=== PATIENT | male | born 1985 | race Caucasian/White ===

== ENCOUNTER 2021-08-25 02:53 | Emergency (ER) | payer OTHER, SELFPAY ==
--- NOTE | ~2021-08-25 | CT_ITS ---
EXAMINATION: CT abdomen pelvis w con DATE: 08/25/2021 03:54 INDICATION: Abdominal pain TECHNIQUE: Computed tomography (CT) of the abdomen and pelvis was performed with 100 cc Omnipaque 350 intravenous contrast. Automated exposure control and iterative reconstruction technique were employe d. Exam dose: 815.82 mGy-cm total exam DLP. COMPARISON: None. FINDINGS: There is minimal dependent right lower lobe atelectasis. Normal heart size. No pericardial or pleural effusion. The liver, gallbladder, bile ducts, spleen, pancreas, pancreatic duct and adrenal glands appear soraida l. Normal caliber of the abdominal aorta. No intraperitoneal or retroperitoneal or pelvic mass lesion or adenopathy or ascites. No renal mass lesion. No urinary tract calculus or hydroureteronephrosis. Normal caliber of the abdominal aorta. No intraperitoneal or retroperitoneal or pelvic mass lesion or adenopathy or ascites. Normal appendix. Minimal colonic diverticulosis; no CT evidence of diverticulitis. Normal appendix. N o bowel obstruction, bowel wall thickening, pneumatosis or intraperitoneal free air. No suspicious osteolytic or osteoblastic lesions are noted. IMPRESSION: Normal appendix Minimal diverticulosis of the colon; no CT evidence of diverticulitis Reviewed, dictated and finalized at [facility] Reviewed, dictated and finalized at [facility].
[2021-08-25 02:57] VITALS: BP 125/96; PULSE 67; RESP 18; TEMP 36.6; O2SAT 100
--- NOTE | 2021-08-25 03:20 | ED.GENADULT ---
HPI - General Adult General Chief complaint: Abdominal Pain Stated complaint: Unable to sleep, right arm pain and back pain Time Seen by Provider: 08/25/21 02:59 Source: RN notes reviewed History of Present Illness HPI narrative: Patient presents emergency department from home for abdominal pain. Patient states abdominal pain began this evening pain is located in the upper abdomen and radiates up in between his shoulder blades described as burning in nature states he tried taking Pepto-Bismol and Tums at home with no relief he denies any fevers or chills chest pain shortness of breath nausea vomiting diarrhea or any other symptoms Related Data Allergies Allergy/AdvReac Type Severity Reaction Status Date / Time codeine AdvReac Unknown SEVERE Verified 08/17/19 12:11 HICCUPS Review of Systems Review of Systems: Gen.: Denies fevers or chills ENT: Denies congestion Respiratory: Denies shortness of breath or cough CV: Denies chest pain or palpitations GI: See HPI denies burning, urgency, frequency or hematuria Musculoskeletal: Denies back pain or muscle pain Neuro: Denies numbness, tingling, weakness or focal weakness Skin: Denies rash Except as documented, all other systems reviewed and negative PMFSH Past Medical History Medical History (Updated 08/25/21 @ 06:26 by Peng Pulido DO) Patient denies significant medical history Surgical History Surgical History (Updated 10/14/19 @ 17:45 by Paris Avila PA-C) H/O nasal septoplasty Social History Social History Smoking status: Current every day smoker Gender identity (if verbalized by the patient): Male Exam Narrative: APPEARANCE: No acute distress, nontoxic, resting in bed HEENT: Normocephalic, atraumatic, OMM RESPIRATORY: No respiratory distress, clear to auscultation bilaterally with no rhonchi wheezing or rales CARDIOVASCULAR: RRR s murmur ABDOMINAL: Soft nondistended tender to palpation in epigastric and right upper quadrant and left lower quadrant no tenderness to palpation in right lower quadrant and left lower quadrant no rebound or guarding MUSCULOSKELETAl: Moves all extremities. No clubbing, cyanosis or edema. NEURO: Awake and alert. Following commands, speech normal, no focal deficits SKIN:: Warm, dry. Normal Color PSYCHIATRIC: Normal affect/mood Course Course Emergency Course: Patient states that they are feeling much better at this time. States abdominal pain has improved. Repeat abdominal exam shows the patient's abdomen to be soft with no surgical abdomen present discussed with patient results of workup and diagnosis. Discussed need for follow-up with primary care physician, reasons to return to the emergency department in proper use of medication. Patient understands and agrees to current treatment plan Vital Signs Vital signs: Vital Signs Temperature 97.9 F 08/25/21 02:57 Pulse Rate 67 08/25/21 02:57 Respiratory Rate 18 08/25/21 02:57 Blood Pressure 125/96 H 08/25/21 02:57 Pulse Oximetry 100 08/25/21 02:57 Temperature 97.9 F 08/25/21 02:57 Pulse Rate 67 08/25/21 02:57 Respiratory Rate 18 08/25/21 02:57 Blood Pressure 125/96 H 08/25/21 02:57 Pulse Oximetry 100 08/25/21 02:57 Medical Decision Making MDM Narrative Medical decision making narrative: Patient's abdomen is soft without significant pain or signs of surgical abdomen on serial exams. Lab and x-ray evaluations are reviewed and patient is felt to be a reasonable candidate for outpatient management. Patient was instructed as to limitations of x-ray and laboratory evaluation and encouraged to return to ED or primary physician for repeat exam in 12 hours if continued or worsening pain Vital Signs Vital Signs: Vital Signs Temperature 97.9 F 08/25/21 02:57 Pulse Rate 67 08/25/21 02:57 Respiratory Rate 18 08/25/21 02:57 Blood Pressure 125/96 H 08/25/21 02:57 Pulse Oximetry 100
[2021-08-25 03:27] LABS: Basophils Percent Auto 0.5 % (0.2-1.2); Eosinophils Absolute Auto 0.1 K/mm3 (0-0.3); Eosinophils Percent Auto 1.7 % (0-4.4); Hematocrit 40.9 % (42.0-52.0); Hemoglobin 13.9 g/dL (14.0-18.0); Immature Granulocyte Absolute 0.01 K/mm3 (0.00-0.031); Immature Granulocyte Percent A 0.2 % (0-0.5); Mean Corpuscular Hemoglobin 30.5 pg (26-34); Mean Corpuscular Volume 89.9 fl (80-100); Monocytes Absolute Auto 0.5 K/mm3 (0.1-0.6); Monocytes Percent Auto 8.4 % (2.6-8.5); Neutrophils Absolute Auto 3.9 K/mm3 (1.3-6.7); Neutrophils Percent Auto 62.2 % (45.5-73.1); Platelet Count Result 184 k/mm3 (150-375); Red Blood Count 4.55 M/mm3 (4.6-6.20); Red Cell Distribution Width 12.7 % (11.5-14.5); White Blood Count 6.3 K/mm3 (4.5-10.0)
[2021-08-25] MEDS: SODIUM CHLORIDE 0.9% IV 1,000 ML 999 ML IV CONT (03:35)
[2021-08-25] MEDS: FAMOTIDINE 20 MG/2 ML VIAL IV PUSH (03:35)
[2021-08-25] MEDS: KETOROLAC 30 MG/ML VIAL (*BKC) IV PUSH (03:35)
[2021-08-25 03:36] LABS: Alanine Aminotransferase 35 U/L (4-50); Albumin Level 4.5 g/dL (3.5-5.1); Alkaline Phosphatase 60 U/L (38-126); Anion Gap 11 mmol/L (8-16); Aspartate Amino Transferase 30 U/L (17-59); Bilirubin,Total 0.3 mg/dL (0.2-1.3); Blood Urea Nitrogen 16 mg/dL (9-20); Calcium 9.6 mg/dL (8.4-10.2); Carbon Dioxide 21 mmol/L (22-30); Chloride 109 mmol/L (98-107); Estimated CRCL calculation 115 ml/min; Estimated Glomerular Filt Rate > 60; Glucose 108 mg/dL (65-110); Lipase 59 U/L (23-300); Potassium 3.6 mmol/L (3.4-5.0); Sodium 141 mmol/L (137-145)
--- NOTE | 2021-08-25 05:49 | ECG_ITS ---
Measurements Intervals [place] Rate: 44 P: 50 NE: 207 QRS: -10 QRSD: 100 T: -1 QT: 387 QTc: 333 Interpretive Statements SINUS BRADYCARDIA WITH SINUS ARRHYTHMIA BASELINE ARTIFACT- II, III, AVR, AVL, AVF ABNORMAL ECG Electronically Signed On 08-25-2021 6:38:59 CDT by Juan Carlos Stovall D.O.
== END 2021-08-25 07:02 | disposition home or self-care (01) ==
PROVIDERS: Emergency Provider Emergency Medicine; PCP Family Medicine
DX: R10.13 Epigastric pain (principal); F17.200 Nicotine dependence, unspecified, uncomplicated; R00.1 Bradycardia, unspecified; K57.90 Diverticulosis of intestine, part unspecified, without perforation or abscess without bleeding
CPT/HCPCS: 36415; 74177; 80053; 83690; 85025; 93005; 96361; 96374; 96375; 99284; A9270; J1885; J7030; Q9967

== ENCOUNTER → 2022-01-02 03:37 | Outpatient (CLI) | payer OTHER, SELFPAY ==
[2022-01-02 12:05] LABS: SARS-CoV-2 RNA PCR Negative
== END ==
PROVIDERS: PCP Family Medicine; Visit Provider Internal Medicine Gastroenterology
DX: Z01.812 Encounter for preprocedural laboratory examination (principal); Z20.822 Contact with and (suspected) exposure to COVID-19
CPT/HCPCS: C9803; U0003; U0005

== ENCOUNTER 2022-01-05 02:10 | Day surgery (SDC) | payer OTHER, SELFPAY ==
[2021-12-26 09:46] VITALS: BMI 31.7
[2022-01-05 07:37] VITALS: BP 137/82; PULSE 58; RESP 18; TEMP 36.3; O2SAT 100; BMI 32.0
[2022-01-05] MEDS: LACTATED RINGERS 1,000 ML 150 ML IV CONT (07:46)
--- NOTE | 2022-01-05 07:52 | P.PNAN_ITS ---
Anes - Initial Pre Proc Eval Procedure: Operation Date: 01/05/22 08:30 Proposed Procedures p Esophagogastroduodenoscopy - Randy Sloan MD Date/Time: 01/05/22 07:52 Surgeon: Randy Sloan MD Pre Op Diagnosis: epigastric pain Patient Data Age: 36 Gender: M Height: 1.75 m Weight: 98.3 kg Last Vital Signs Temp 36.3 C L 01/05/22 07:37 Pulse 58 L 01/05/22 07:37 Resp 18 01/05/22 07:37 BP 137/82 01/05/22 07:37 Pulse Ox 100 01/05/22 07:37 Allergies Allergy/AdvReac Type Severity Reaction Status Date / Time codeine AdvReac Intermediate SEVERE Verified 01/05/22 07:36 HICCUPS Home Medications Medication Instructions Recorded Confirmed Type No Home Medications 12/09/21 12/26/21 History Patient hx anesthesia problems: none Family hx anesthesia problems: none Results Review: All pre-operative results and documents have been reviewed as part of the pre-operative evaluation. [facility] Past Medical History Medical History Obesity Patient denies significant medical history Smoker Surgical History Surgical History H/O nasal septoplasty Social History Social History (Updated 12/26/21 @ 09:51 by Katie Rodriguez RN) Smoking packs per day: 1 Smoking cigarettes per day: 20.0 Years smoked: 15 Smoking pack-years: 15.00 Smoking status: Former smoker Tobacco type: e-cigarettes/vaping Additional smoking assessment comments: VAPES CURRENTLY CARTRIDGE EVERY 2 DAYS Alcohol intake: current Drinks per week: 12 Alcohol use details: BEERS Substance use: never Substance use type: does not use Living arrangements: with family Gender identity (if verbalized by the patient): Male Spiritual care concerns: No Anes - Eval Final PreProcedure Day of Procedure 01/05/22 07:52 Patient weight: obese Heart: regular rate and rhythm Lungs: clear to auscultation Airway: Mallampati scale class II Neurological: alert and oriented Last oral intake: >/= 8 hours ASA classification: II Emergent: no Anesthetic plan: proceed Anesthesia type and monitoring: general GIVS and standard monitoring Results Review: All pre-operative results and documents have been reviewed as part of the pre-operative evaluation. Informed Consent: The patient's anesthetic plan and its attendant risks and benefits were discussed with the patient/family/POA. Questions were solicited and answers provided to the satisfaction of the patient/family/POA.
--- NOTE | 2022-01-05 07:56 | WPDGICN ---
Assessment and Plan Assessment and plan (1) Epigastric abdominal pain: Code(s): R10.13 - Epigastric pain Status: Acute Assessment and Plan: Patient with epigastric pain prompting an ER visit. For this reason an EGD is requested kimbrough suggest he try antacid such as Mylanta, Tums, or xoul-och-yfogtec Pepcid on a routine basis should this occur. Further recommendations will be given after endoscopy. Anti-reflux measures bland diet her strongly encouraged. (2) Constipation: Code(s): K59.00 - Constipation, unspecified Status: Acute Assessment and Plan: Patient with constipation. Would recommend Metamucil be taken on a daily basis. MiraLax to supplement this on an mjxak-prehq-lnw basis may also be beneficial. High-fiber diet in general is encouraged. GI Consult Note Consult date/time: 01/05/22 07:56 HPI: Osmin Schwartz is a 36 year old male Presents for EGD. He has occasional epigastric pain. This prompted him to go to the emergency room on at least 1 occasion. He was given antacids with good improvement of symptoms. He has not tried any guoq-vwx-ktrtwba medications. He denies any dysphagia or weight loss. He has had no bleeding. Patient additionally complains of difficulty with bowel habits. He strains at stools has infrequent bowel movements. He repeat ports hemorrhoidal pain with flare ups at least once a month. He states he does eat fruits and vegetables but not has not taken any laxatives. He was going to try probiotics but does not implement this regularly. Family history is noncontributory. Review of Systems Review of Systems: All systems reviewed & are unremarkable except as noted in HPI and below PMFSH Past Medical History Medical History Obesity Patient denies significant medical history Smoker Surgical History Surgical History H/O nasal septoplasty Social History Social History (Updated 12/26/21 @ 09:51 by Katie Rodriguez RN) Smoking packs per day: 1 Smoking cigarettes per day: 20.0 Years smoked: 15 Smoking pack-years: 15.00 Smoking status: Former smoker Tobacco type: e-cigarettes/vaping Additional smoking assessment comments: VAPES CURRENTLY CARTRIDGE EVERY 2 DAYS Alcohol intake: current Drinks per week: 12 Alcohol use details: BEERS Substance use: never Substance use type: does not use Living arrangements: with family Gender identity (if verbalized by the patient): Male Spiritual care concerns: No Meds Home Medications and Allergies Home Medications Medication Instructions Recorded Confirmed Type No Home Medications 12/09/21 12/26/21 History Allergies Allergy/AdvReac Type Severity Reaction Status Date / Time codeine AdvReac Intermediate SEVERE Verified 01/05/22 07:36 HICCUPS Vital Signs Vital Signs - 24 hr 01/05/22 07:37 Temperature 97.3 F L Pulse Rate 58 L Respiratory Rate 18 Blood Pressure 137/82 Pulse Oximetry 100 Exam Narrative: Physical exam reveals patient be alert. Vital signs stable. HEENT exam is unremarkable. Patient is anicteric. Lungs are clear to auscultation and percussion. Heart is without murmur or extra sounds. Abdomen bowel sounds present soft nontender with no hepatosplenomegaly. Rectal exam without lesions. Skin reveals many tattoos.
[2022-01-05] MEDS: BENZOCAINE (*SP) 60 ML SPRAY CAN (HURRICAINE) 1 SPRAY MUCOUS MEM (08:32)
[2022-01-05 08:41] VITALS: BP 110/72; PULSE 56; RESP 18; O2SAT 100
[2022-01-05 08:51] VITALS: BP 116/71; PULSE 58; RESP 17; O2SAT 100
[2022-01-05 09:01] VITALS: BP 118/79; PULSE 61; RESP 20; O2SAT 100
== END 2022-01-05 09:05 | disposition home or self-care (01) ==
PROVIDERS: PCP Family Medicine; Visit Provider Internal Medicine Gastroenterology
PROC: 0DJ08ZZ Inspection of Upper Intestinal Tract, Via Natural or Artificial Opening Endoscopic (ICD-10-PCS; CPT 43235; principal; 2022-01-05 08:30)
DX: K21.00 Gastro-esophageal reflux disease with esophagitis, without bleeding (principal); K22.10 Ulcer of esophagus without bleeding; K59.00 Constipation, unspecified; F17.290 Nicotine dependence, other tobacco product, uncomplicated; E66.9 Obesity, unspecified; Z68.32 Body mass index [BMI] 32.0-32.9, adult
CPT/HCPCS: 43239; 88305; C9803; J2001; J2704; J7120; U0003; U0005

== ENCOUNTER 2022-04-28 00:29 | Inpatient (IN) | payer OTHER, SELFPAY ==
--- NOTE | ~2022-04-28 | MR_ITS ---
EXAMINATION: MR MRCP wo/w con/w 3D wo ind DATE: 04/28/2022 10:05 INDICATION: Choledocholithiasis. TECHNIQUE: Magnetic resonance imaging (MRI) of the abdomen was performed without intravenous contrast . Sequences included coronal T2-weighted FS FSE, coronal T2-weighted FSE, axial T1-weighted LAVA, cor onal FS FIESTA, axial dual-echo T1-weighted SPGR, coronal lava-FLEX, sagittal T2-weighted FSE, axial T2-weighted FSE, and axial DWI. Thick-slab T2-weighted FSE images were obtained for magnetic resonanc e cholangiopancreatography (MRCP). Maximum intensity projection 3-D reconstructions of the volumetric data were created by the technologist. Postcontrast sequences included coronal LAVA-flex and time co urse of axial T1-weighted LAVA. COMPARISON: CT abdomen and pelvis 04/28/2022 FINDINGS: ABDOMEN MRI: The liver demonstrates periportal edema. There is a gallstone in the gallbladder, which is contracted. Gallbladder wall thickening is noted. The spleen, pancreas, adrenal glands, and kidney s are normal. There are no dilated loops of bowel. The appendix is normal. There are no pathologicall y enlarged lymph nodes. There is no free intraperitoneal fluid. ABDOMEN MRCP: The common duct is normal and measures 4 mm. No choledocholithiasis. IMPRESSION: 1. No choledocholithiasis. 2. Cholelithiasis. Gallbladder wall thickening is likely secondary to gallbladder contraction and int erstitial edema. Reviewed, dictated and finalized at location A. IMPRESSION: 1. No choledocholithiasis. 2. Cholelithiasis. Gallbladder wall thickening is likely secondary to gallbladd er contraction and interstitial edema.
--- NOTE | ~2022-04-28 | CT_ITS ---
EXAMINATION: CT abdomen pelvis wo con DATE: 04/28/2022 01:02 INDICATION: Upper abdominal pain. TECHNIQUE: Computed tomography (CT) of the abdomen and pelvis was performed without intravenous contr ast. Automated exposure control and iterative reconstruction technique were employed. The dose-length product was 721.47 mGy-cm. COMPARISON: CT abdomen and pelvis 08/25/2021 FINDINGS: The visualized portions of the lung bases are clear without pneumonia or pleural effusion. The heart size is normal. No pericardial effusion. There is a small sliding hiatal hernia. There is l iver is normal. There is a gallstone in the gallbladder, which is normal in size. The spleen, pancrea s, adrenal glands, and kidneys are normal. There is no urolithiasis. There is diverticulosis of the c olon without evidence of diverticulitis. The appendix is normal. There are no dilated loops of bowel. There are no pathologically enlarged lymph nodes. There is no free intraperitoneal fluid. There is o steonecrosis of the femoral heads. IMPRESSION: 1. Cholelithiasis. No specific evidence of acute cholecystitis. 2. Small sliding hiatal hernia. 3. Osteonecrosis of the femoral heads. Reviewed, dictated and finalized at location A.
[2022-04-28 00:30] VITALS: BP 144/92; PULSE 66; RESP 16; TEMP 36.4; O2SAT 100
--- NOTE | 2022-04-28 00:54 | ED.ABDPAIN ---
HPI - Abdominal Pain General Chief Complaint: Abdominal Pain <MICHELLE Manley Last Filed: 04/28/22 02:54> Stated Complaint: abdominal pain <MICHELLE Manley Last Filed: 04/28/22 02:54> Time Seen by Provider: 04/28/22 00:38 <MICHELLE Manley Last Filed: 04/28/22 02:54> History of Present Illness HPI narrative: Patient is a 36-year-old male here for evaluation of epigastric discomfort today and yesterday. Patient states the pain came on yesterday, was mild in nature, and relieved after heating pack and rest. He states the pain returned tonight, woke him up from sleep, became much more severe in nature. The pain radiates to his bilateral shoulders and is constant. He has not attempted any medications for his pain, but denies relief after heating pad tonight. Does note that he had 1 loose nonbloody stool today. Denies nausea, vomiting, fevers, chills, sick contacts, new foods, chest pain or shortness of breath. Does endorse frequent alcohol use and he is a smoker. Denies history of surgeries on abdomen. <MICHELLE Manley Last Filed: 04/28/22 02:54> Related Data Home Medications: Home Medications Medication Instructions Recorded Confirmed No Home Medications 12/09/21 12/26/21 <MICHELLE Manley Last Filed: 04/28/22 02:54> Allergies/Adverse Reactions: Allergies Allergy/AdvReac Type Severity Reaction Status Date / Time codeine AdvReac Intermediate SEVERE Verified 04/28/22 00:33 HICCUPS <MICHELLE Manley Last Filed: 04/28/22 02:54> Review of Systems Review of Systems: Gen: Denies fevers or chills Eyes: Denies eye pain or visual change ENT: Denies congestion Respiratory: Denies shortness of breath or cough CV: Denies chest pain or palpitations GI: Reports abdominal pain. Denies nausea, emesis or diarrhea denies burning, urgency, frequency or hematuria Musculoskeletal: Denies back pain or muscle pain Neuro: Denies numbness, tingling, weakness or focal weakness Skin: Denies rash Except as documented, all other systems reviewed and negative <Paris Mcclelland PA-C - Last Filed: 04/28/22 02:54> [facility] Past Medical History Medical History: Medical History Obesity Patient denies significant medical history Smoker <Paris Mcclelland PA-C - Last Filed: 04/28/22 02:54> Surgical History Surgical History: Surgical History H/O nasal septoplasty <Paris Mcclelland PA-C - Last Filed: 04/28/22 02:54> Social History Social History: Social History (Updated 12/26/21 @ 09:51 by Katie Rodriguez RN) Smoking packs per day: 1 Smoking cigarettes per day: 20.0 Years smoked: 15 Smoking pack-years: 15.00 Smoking status: Former smoker Tobacco type: cigarettes and e-cigarettes/vaping Additional smoking assessment comments: VAPES CURRENTLY CARTRIDGE EVERY 2 DAYS Alcohol intake: current Drinks per week: 12 Alcohol use details: BEERS Substance use: never Substance use type: does not use Gender identity (if verbalized by the patient): Male Spiritual care concerns: No <MICHELLE Manley Last Filed: 04/28/22 02:54> Exam Narrative: APPEARANCE: No acute distress, nontoxic, resting in bed EYES: EOMI HEENT: Normocephalic, atraumatic, OMM RESPIRATORY: No respiratory distress Clear to auscultation bilaterally with no rhonchi wheezing or rales. CARDIOVASCULAR: 2+ radial pulses bilaterally. Regular rate and rhythm without murmurs rubs or gallops. ABDOMINAL: Tender in epigastrium with guarding. Soft, nondistended, no rebound MUSCULOSKELETAL: Moves all extremities. No clubbing, cyanosis or edema. NEURO: Awake and alert. Following commands, speech normal, no focal deficits SKIN:: Warm, dry. No rashes lesions or abrasions PSYCHIATRIC: Normal affect/mood, <MICHELLE Manley
[2022-04-28 00:58] LABS: Basophils Percent Auto 0.5 % (0.2-1.2); Eosinophils Absolute Auto 0.1 K/mm3 (0-0.3); Eosinophils Percent Auto 2.4 % (0-4.4); Hematocrit 40.8 % (42.0-52.0); Hemoglobin 13.4 g/dL (14.0-18.0); Immature Granulocyte Absolute 0.01 K/mm3 (0.00-0.031); Immature Granulocyte Percent A 0.3 % (0-0.5); Lymphocytes Absolute Auto 1.16 K/mm3 (0.9-3.2); Lymphocytes Percent Auto 30.9 % (18.3-44.2); Mean Corpuscular HGB Conc 32.8 g/dl (32-36); Mean Corpuscular Hemoglobin 29.1 pg (26-34); Mean Corpuscular Volume 88.5 fl (80-100); Mean Platelet Volume 10.6 fl (7.4-10.4); Monocytes Absolute Auto 0.4 K/mm3 (0.1-0.6); Monocytes Percent Auto 10.4 % (2.6-8.5); Neutrophils Absolute Auto 2.1 K/mm3 (1.3-6.7); Neutrophils Percent Auto 55.5 % (45.5-73.1); Platelet Count Result 163 k/mm3 (150-375); Red Blood Count 4.61 M/mm3 (4.6-6.20); Red Cell Distribution Width 12.8 % (11.5-14.5); White Blood Count 3.8 K/mm3 (4.5-10.0)
[2022-04-28 01:18] LABS: Albumin Level 4.4 g/dL (3.5-5.1); Alkaline Phosphatase 128 U/L (38-126); Anion Gap 6 mmol/L (8-16); Bilirubin,Total 1.6 mg/dL (0.2-1.3); Blood Urea Nitrogen 12 mg/dL (9-20); Calcium 8.9 mg/dL (8.4-10.2); Carbon Dioxide 28 mmol/L (22-30); Chloride 107 mmol/L (98-107); Estimated CRCL calculation 94 ml/min; Estimated Glomerular Filt Rate > 60; Glucose 107 mg/dL (65-110); Lipase 67 U/L (23-300); Potassium 3.7 mmol/L (3.4-5.0); Sodium 141 mmol/L (137-145)
[2022-04-28] MEDS: FAMOTIDINE 20 MG/2 ML VIAL IV PUSH (01:18)
[2022-04-28 01:38] LABS: Alanine Aminotransferase 1425 U/L (6-50); Aspartate Amino Transferase 1011 U/L (17-59)
[2022-04-28] MEDS: KETOROLAC 15 MG/ML VIAL (*BKC) IV PUSH (01:48)
[2022-04-28] MEDS: HYDROmorphone HCL INJ (*CRX) 1 MG/ML SYR IV PUSH ×5 (02:16→23:50)
[2022-04-28] MEDS: SODIUM CHLORIDE 0.9% IV 1,000 ML 999 ML IV CONT (02:16)
[2022-04-28 02:28] VITALS: BP 142/96; PULSE 74; RESP 18; O2SAT 96
[2022-04-28 02:57] VITALS: BMI 32.1
[2022-04-28 02:58] VITALS: BP 139/86; PULSE 56; RESP 18; TEMP 36.6; O2SAT 97
--- NOTE | 2022-04-28 03:00 | ADMGEN ---
This patient, Osmin Schwartz, was admitted to Medical Room 349-01. Patient/family oriented to hospital policies and general routines including ID bracelet, bed and alarms, visiting hours, pain management, procedures, bathroom and other care routines, personal items, smoking policy, room service/diet, and visiting hours. Information on how to activate the Rapid Response Team has been discussed. Patient/Family are encouraged to report perceived risks to care and to ask questions if they do not understand what they are told or what they should do.
[2022-04-28] MEDS: DEXTROSE 5%/0.45% SOD CHL 1,000 ML 100 ML IV CONT ×2 (03:14→23:51)
--- NOTE | 2022-04-28 07:38 | PM.CNGS ---
Assessment and Plan Assessment and plan (1) Choledocholithiasis: Code(s): K80.50 - Calculus of bile duct without cholangitis or cholecystitis without obstruction Status: Acute Assessment and Plan: will get MRCP for further eval, will trend labs, serial exams, GI consult obtained as well, will need interval verónica once duct is cleared (2) Constipation: Code(s): K59.00 - Constipation, unspecified Status: Acute Assessment and Plan: chronic, will likely need some kind of bowel regimen (3) Tobacco abuse: Code(s): Z72.0 - Tobacco use Status: Acute Assessment and Plan: not interested in cessation at this time (4) BMI 32.0-32.9,adult: Code(s): Z68.32 - Body mass index [BMI] 32.0-32.9, adult Status: Acute Assessment and Plan: lifestyle and dietary modifications History of Present Illness Consult details Consult date: 04/28/22 Reason for consult: abdominal pain Requesting physician: Elías Gunn MD Narrative: Pt is a 36 y/o M presenting to ED c/o severe epigastric abdominal pain/pressure over last few days. Pt reports pain is constant, dull c radiation to back and chest. Pt reports associated anorexia, nausea, bloating. Pt reports similar episodes in the past although none this severe or long-lasting. Review of Systems Constitutional: Constitutional: Reports anorexia, Denies chills, Reports fatigue, Reports lethargy, Reports poor appetite, Reports weakness, Denies weight gain and Denies weight loss Eyes: Eyes: Reports no additional eye complaints ENT: Reports system reviewed and no additional complaints, except as documented Cardiovascular: Cardiovascular: Reports no additional cardiovascular complaints Respiratory: Respiratory: Reports no additional respiratory complaints Gastrointestinal: Gastrointestinal: Reports as per HPI, Reports abdominal pain, Reports belching, Reports bloating, Reports constipation, Reports nausea and Denies vomiting Genitourinary: Genitourinary: Reports no additional male genitourinary complaints Musculoskeletal: Musculoskeletal: Reports no additional musculoskeletal complaints Integumentary/Breasts: Skin/Breast: Reports system reviewed and no additional complaints, except as docu Neurologic: Reports system reviewed and no additional complaints, except as documented Psychiatric: Psychiatric: Reports no additional psychiatric complaints Endocrine: Endocrine: Reports no additional endocrine complaints Hematologic/Lymphatic: Hematologic/Lymphatic: Reports no additional hematologic/lymphatic complaints Allergic/Immunologic: Allergic/Immunologic: Reports no additional allergic/immunologic complaints PMFSH Past Medical History Medical History Obesity Patient denies significant medical history Smoker Surgical History Surgical History H/O nasal septoplasty Family History Family History Mother Lung cancer Sibling Vocal cord cancer Sibling Pancreatitis Social History Social History Smoking packs per day: 1 Smoking cigarettes per day: 20.0 Years smoked: 15 Smoking pack-years: 15.00 Smoking status: Current every day smoker Tobacco type: e-cigarettes/vaping Additional smoking assessment comments: patient vapes one half pod per day Alcohol intake: current Drinks per week: 12 Alcohol use details: BEERS Substance use: never Substance use type: does not use Gender identity (if verbalized by the patient): Male Spiritual care concerns: No Meds Home Medications and Allergies Home Medications Medication Instructions Recorded Confirmed Type No Home Medications 12/09/21 04/28/22 History Allergies Allergy/AdvReac Type Severity Reaction Status Date / Time codeine AdvReac Intermediate SEVERE Verified 04/28/22
--- NOTE | 2022-04-28 07:58 | PM.IMHP ---
H&P: HPI History of Present Illness Date/Time: 04/28/22 07:58 Chief Complaint: Acute abdominal pain Narrative: Patient is a 36-year-old male with past medical history of obesity and tobacco abuse. He presented to [facility] due to epigastric discomfort that began on 04/27/2022. Patient reports that the pain progressively became worse yesterday and relieved with a heating pack at rest. However during the night the patient woke up from his sleep and much severe pain were pain radiated to his bilateral shoulders and became constant. He has not attempted any rngt-bvt-pkajvha medication for his pain but denies relief after heating pad last night. Patient does note that he had 1 loose non hematochezia or melena stool. He denies any nausea, vomiting, upset stomach, fever, chills, known sick contacts, chest pain or shortness of breath. Patient does endorse frequent alcohol use and he is a tobacco user. Denies any previous abdominal surgeries. While in the emergency department labs and imaging were obtained. Labs were significant for WBC of 3.8, hemoglobin 13.4, hematocrit 40.8, platelet 163, sodium 141, potassium 3.7, BUN 12, creatinine 1.1 and significantly elevated LFTs. Total bilirubin 1.6, AST 1011, ALT 1425, alkaline phosphatase 128 and a lipase of 67. A CT of the abdomen and pelvis was then performed which revealed gallbladder distention and appears to had contained 2 cm noncalcified stones. General surgery was consulted from the emergency department for further consultation as well as the hospitalist team for admission. Patient was started on IV antibiotics, IV fluids and general surgery came to evaluate the patient. General surgery ordered an MRCP for further evaluation. Labs will be trended with serial exams. GI consult obtained as well. Review of Systems Review of Systems: All systems reviewed & are unremarkable except as noted in HPI and below PMFSH Past Medical History Medical History Obesity Patient denies significant medical history Smoker Surgical History Surgical History H/O nasal septoplasty Family History Family History Mother Lung cancer Sibling Vocal cord cancer Sibling Pancreatitis Social History Social History Smoking packs per day: 1 Smoking cigarettes per day: 20.0 Years smoked: 15 Smoking pack-years: 15.00 Smoking status: Current every day smoker Tobacco type: e-cigarettes/vaping Additional smoking assessment comments: patient vapes one half pod per day Alcohol intake: current Drinks per week: 12 Alcohol use details: BEERS Substance use: never Substance use type: does not use Gender identity (if verbalized by the patient): Male Spiritual care concerns: No Meds Home Medications and Allergies Home Medications Medication Instructions Recorded Confirmed Type No Home Medications 12/09/21 04/28/22 History Allergies Allergy/AdvReac Type Severity Reaction Status Date / Time codeine AdvReac Intermediate SEVERE Verified 04/28/22 03:03 HICCUPS Vital Signs Vital Signs - 24 hr 04/28/22 00:30 04/28/22 02:28 04/28/22 02:58 Temperature 97.6 F 97.8 F Pulse Rate 66 74 56 L Respiratory Rate 16 18 18 Blood Pressure 144/92 H 142/96 H 139/86 Pulse Oximetry 100 96 97 Oxygen Delivery Room Air Exam Narrative: General: No acute distress. Mental Status: Awake, alert and oriented to person, place, and time with clear speech. Skin: Skin in warm, dry and intact without rashes or lesions. Head: Normocephalic and atraumatic. Eyes: Conjunctivae are clear without exudates or hemorrhage. Sclera is non-icteric. EOM are intact, PERRLA. Ears: The external ear and canal are non-tender and without swelling or discharge. Nose: Nasal mucosa is pink and moist. Septum midlin
--- NOTE | 2022-04-28 13:13 | WPDGICN ---
Assessment and Plan Assessment and plan (1) Cholelithiasis: Code(s): K80.20 - Calculus of gallbladder without cholecystitis without obstruction Status: Acute Assessment and Plan: he has been seen by surgery. MRCP was ordered with the assumption that his marked liver enzyme elevation was due to choledocholithiasis. MRCP however showed a normal common bile duct diameter, about 4 mm and no intra ductal stones. is of course possible that he passed a stone, in which case is LFT should improve dramatically. I told that he will very likely still need his gallbladder removed, but I thought we could try him on clear liquids this afternoon (2) Transaminitis: Code(s): R74.01 - Elevation of levels of liver transaminase levels Status: Acute Assessment and Plan: With ALT over 1400 and AST about 1000, the possibility of hepatitis or other acute hepatic injury must be considered. By his history, he does not drink enough alcohol to have caused this and I would have expected a reversal of the ratio of SGOT to SGPT. I will recheck his LFTs CV GI Consult Note Consult date/time: 04/28/22 13:14 HPI: Osmin Schwartz is a 36 year old male who developed discomfort across his upper abdomen over the past 2 days. He had some nausea with this but no vomiting. He has did not have any fever chills. CT scan showed gallstones. He states that he has never had liver disease in the past. He does drink alcohol, about a 12 pack per week. His appetite had been good. He states that he has seen a gastrologist in the past, many years ago because he was having bowel problems, however he has never had symptoms like this in the past. He states his brother had gallstones in fact had pancreatitis and ended up with surgery that involved rerouting of some of his upper intestines or bile duct. I have personally reviewed his CT scan MRCP. Review of Systems Review of Systems: All systems reviewed & are unremarkable except as noted in HPI and below PMFSH Past Medical History Medical History Obesity Patient denies significant medical history Smoker Surgical History Surgical History H/O nasal septoplasty Family History Family History Mother Lung cancer Sibling Vocal cord cancer Sibling Pancreatitis Social History Social History Smoking packs per day: 1 Smoking cigarettes per day: 20.0 Years smoked: 15 Smoking pack-years: 15.00 Smoking status: Current every day smoker Tobacco type: e-cigarettes/vaping Additional smoking assessment comments: patient vapes one half pod per day Alcohol intake: current Drinks per week: 12 Alcohol use details: BEERS Substance use: never Substance use type: does not use Gender identity (if verbalized by the patient): Male Spiritual care concerns: No Meds Home Medications and Allergies Home Medications Medication Instructions Recorded Confirmed Type No Home Medications 12/09/21 04/28/22 History Allergies Allergy/AdvReac Type Severity Reaction Status Date / Time codeine AdvReac Intermediate SEVERE Verified 04/28/22 03:03 HICCUPS Vital Signs Vital Signs - 24 hr 04/28/22 00:30 04/28/22 02:28 04/28/22 02:58 Temperature 36.4 C 36.6 C Pulse Rate 66 74 56 L Respiratory Rate 16 18 18 Blood Pressure 144/92 H 142/96 H 139/86 Pulse Oximetry 100 96 97 Oxygen Delivery Room Air 04/28/22 08:00 Temperature Pulse Rate Respiratory Rate Blood Pressure Pulse Oximetry Oxygen Delivery Room Air Exam Const: General: alert Orientation/consciousness: patient oriented x3 Resp: Auscultation: clear to auscultation bilaterally Cardio: Rhythm: regular rhythm GI: GI Palp: Yes abdominal tenderness ( Diffuse throughout her abdomen), Yes Soft to palpation and Yes Guardin
--- NOTE | 2022-04-28 13:30 | WPDANESEPPF ---
Anes - Initial Pre Proc Eval Procedure: Operation Date: 04/29/22 07:30 Proposed Procedures p Laparoscopic Cholecystectomy - Rosario Causey MD Date/Time: 04/28/22 13:30 Surgeon: Elías Gunn MD Pre Op Diagnosis: gallstones Patient Data Age: 36 Gender: M Height: 1.75 m Weight: 98.8 kg Last Vital Signs Temp 36.6 C 04/28/22 02:58 Pulse 56 L 04/28/22 02:58 Resp 18 04/28/22 02:58 BP 139/86 04/28/22 02:58 Pulse Ox 97 04/28/22 02:58 O2 Del Method Room Air 04/28/22 08:00 Allergies Allergy/AdvReac Type Severity Reaction Status Date / Time codeine AdvReac Intermediate SEVERE Verified 04/28/22 03:03 HICCUPS Home Medications Medication Instructions Recorded Confirmed Type No Home Medications 12/09/21 04/28/22 History Laboratory Tests 04/28/22 04/28/22 00:52 00:52 WBC 3.8 K/mm3 L K/mm3 (4.5-10.0) RBC 4.61 M/mm3 M/mm3 (4.6-6.20) Hgb 13.4 g/dL L g/dL (14.0-18.0) Hct 40.8 % L % (42.0-52.0) MCV 88.5 fl fl (80-100) MCH 29.1 pg pg (26-34) MCHC 32.8 g/dl g/dl (32-36) RDW 12.8 % % (11.5-14.5) Plt Count 163 k/mm3 k/mm3 (150-375) MPV 10.6 fl H fl (7.4-10.4) Immature Gran % (Auto) 0.3 % % (0-0.5) Neut % (Auto) 55.5 % % (45.5-73.1) Lymph % (Auto) 30.9 % % (18.3-44.2) [place] % (Auto) 10.4 % H % (2.6-8.5) Eos % (Auto) 2.4 % % (0-4.4) Baso % (Auto) 0.5 % % (0.2-1.2) Lymph # (Auto) 1.16 K/mm3 K/mm3 (0.9-3.2) [place] # (Auto) 0.4 K/mm3 K/mm3 (0.1-0.6) Eos # (Auto) 0.1 K/mm3 K/mm3 (0-0.3) Baso # (Auto) 0.0 K/mm3 K/mm3 (0.0-0.1) Abs Immat Gran (auto) 0.01 K/mm3 K/mm3 (0.00-0.031) Absolute Neuts (auto) 2.1 K/mm3 K/mm3 (1.3-6.7) Absolute Nucleated RBC 0.0 K/mm3 K/mm3 (0.0-0.012) Nucleated RBC % 0.0 % % (0.0-0.2) Sodium 141 mmol/L mmol/L (137-145) Potassium 3.7 mmol/L mmol/L (3.4-5.0) Chloride 107 mmol/L mmol/L (98-107) Carbon Dioxide 28 mmol/L mmol/L (22-30) Anion Gap 6 mmol/L L mmol/L (8-16) BUN 12 mg/dL mg/dL (9-20) Creatinine 1.10 mg/dL mg/dL (0.7-1.3) Estim Creat Clear Calc 94 ml/min ml/min Estimated GFR > 60 (59 - ) Glucose 107 mg/dL mg/dL (65-110) Calcium 8.9 mg/dL mg/dL (8.4-10.2) Total Bilirubin 1.6 mg/dL H mg/dL (0.2-1.3) AST 1011 U/L H U/L (17-59) ALT 1425 U/L H U/L (6-50) Alkaline Phosphatase 128 U/L H U/L (38-126) Total Protein 8.0 g/dL g/dL (6.3-8.2) Albumin 4.4 g/dL g/dL (3.5-5.1) Lipase 67 U/L U/L (23-300) Results Review: All pre-operative results and documents have been reviewed as part of the pre-operative evaluation. [facility] Past Medical History Medical History Cholelithiasis Obesity Smoker Surgical History Surgical History H/O nasal septoplasty Family History Family History Mother Lung cancer Sibling Vocal cord cancer Sibling Pancreatitis Social History Social History Smoking packs per day: 1 Smoking cigarettes per day: 20.0 Years smoked: 15 Smoking pack-years: 15.00 Smoking status: Current every day smoker Tobacco type: e-cigarettes/vaping Additional smoking assessment comments: patient vapes one half pod per day Alcohol intake: current Drinks per week: 12 Alcohol use details: BEERS Substance use: never Substance use type: does not use Gender identity (if verbalized by the patient): Male Spiritual care concerns: No Anes - Eval Final PreProcedure Day of Procedure 04/28/22 13:30 Patient weight: obese Heart: regular rate and rhythm Lungs: clear to auscultation Airway: Mallampati
[2022-04-28 14:18] VITALS: BP 140/86; PULSE 57; RESP 16; TEMP 36.6; O2SAT 100
[2022-04-28 14:37] VITALS: O2SAT 100
[2022-04-28 17:11] LABS: Albumin Level 4.2 g/dL (3.5-5.1); Alkaline Phosphatase 124 U/L (38-126); Aspartate Amino Transferase 599 U/L (17-59); Bilirubin Direct 0.4 mg/dL (0-0.3); Bilirubin,Total 2.6 mg/dL (0.2-1.3)
[2022-04-28 17:19] LABS: Alanine Aminotransferase 1323 U/L (6-50)
[2022-04-28 18:00] LABS: Hepatitis B Surface Antigen Negative (Negative)
[2022-04-28 18:06] LABS: HAV RESULT Negative (Negative); Hepatitis B Core IgM Result Negative (Negative)
[2022-04-28 18:18] LABS: Hepatitis C Virus Antibody Negative (Negative)
[2022-04-28 22:00] VITALS: BP 140/83; PULSE 51; RESP 18; TEMP 36.5; O2SAT 100
[2022-04-29] VITALS (14 sets, daily range): BP systolic 108–152; BP diastolic 55–88; PULSE 44–67; RESP 14–18; TEMP 36.2–37.1; O2SAT 94–100
[2022-04-29 05:38] LABS: Basophils Percent Auto 0.5 % (0.2-1.2); Eosinophils Absolute Auto 0.1 K/mm3 (0-0.3); Eosinophils Percent Auto 2.3 % (0-4.4); Hematocrit 38.4 % (42.0-52.0); Hemoglobin 12.5 g/dL (14.0-18.0); Immature Granulocyte Absolute 0.01 K/mm3 (0.00-0.031); Immature Granulocyte Percent A 0.3 % (0-0.5); Lymphocytes Absolute Auto 1.18 K/mm3 (0.9-3.2); Lymphocytes Percent Auto 30.7 % (18.3-44.2); Mean Corpuscular HGB Conc 32.6 g/dl (32-36); Mean Corpuscular Hemoglobin 29.6 pg (26-34); Mean Corpuscular Volume 90.8 fl (80-100); Mean Platelet Volume 11.1 fl (7.4-10.4); Monocytes Absolute Auto 0.3 K/mm3 (0.1-0.6); Monocytes Percent Auto 8.9 % (2.6-8.5); Neutrophils Absolute Auto 2.2 K/mm3 (1.3-6.7); Neutrophils Percent Auto 57.3 % (45.5-73.1); Platelet Count Result 144 k/mm3 (150-375); Red Blood Count 4.23 M/mm3 (4.6-6.20); Red Cell Distribution Width 13.1 % (11.5-14.5); White Blood Count 3.8 K/mm3 (4.5-10.0)
[2022-04-29 05:46] LABS: Ammonia < 9 umol/L (9-30)
[2022-04-29 05:47] LABS: Prothrombin Time 12.9 Seconds (11.1-14.7)
[2022-04-29 05:57] LABS: Albumin Level 4.1 g/dL (3.5-5.1); Alkaline Phosphatase 135 U/L (38-126); Anion Gap 3 mmol/L (8-16); Aspartate Amino Transferase 384 U/L (17-59); Bilirubin,Total 1.5 mg/dL (0.2-1.3); Blood Urea Nitrogen 8 mg/dL (9-20); Calcium 8.3 mg/dL (8.4-10.2); Carbon Dioxide 28 mmol/L (22-30); Chloride 109 mmol/L (98-107); Estimated CRCL calculation 103 ml/min; Estimated Glomerular Filt Rate > 60; Glucose 104 mg/dL (65-110); Potassium 3.8 mmol/L (3.4-5.0); Sodium 140 mmol/L (137-145)
[2022-04-29 06:37] LABS: Alanine Aminotransferase 1133 U/L (6-50)
[2022-04-29] MEDS: LACTATED RINGERS 1,000 ML 30 ML IV CONT (06:40)
--- NOTE | 2022-04-29 06:45 | WPDANESEPPF ---
Anes - Initial Pre Proc Eval Procedure: Operation Date: 04/29/22 07:30 Proposed Procedures p Laparoscopic Cholecystectomy - Rosario Causey MD Date/Time: 04/29/22 06:45 Surgeon: Elías Gunn MD Pre Op Diagnosis: gallstones Patient Data Age: 36 Gender: M Height: 1.75 m Weight: 98.8 kg Last Vital Signs Temp 36.2 C L 04/29/22 06:25 Pulse 45 L 04/29/22 06:25 Resp 16 04/29/22 06:25 BP 136/86 04/29/22 06:25 Pulse Ox 99 04/29/22 06:25 O2 Del Method Room Air 04/29/22 06:25 Allergies Allergy/AdvReac Type Severity Reaction Status Date / Time codeine AdvReac Intermediate SEVERE Verified 04/28/22 03:03 HICCUPS Home Medications Medication Instructions Recorded Confirmed Type No Home Medications 12/09/21 04/28/22 History Laboratory Tests 04/28/22 04/28/22 04/29/22 16:55 16:55 05:23 WBC 3.8 K/mm3 L K/mm3 (4.5-10.0) RBC 4.23 M/mm3 L M/mm3 (4.6-6.20) Hgb 12.5 g/dL L g/dL (14.0-18.0) Hct 38.4 % L % (42.0-52.0) MCV 90.8 fl fl (80-100) MCH 29.6 pg pg (26-34) MCHC 32.6 g/dl g/dl (32-36) RDW 13.1 % % (11.5-14.5) Plt Count 144 k/mm3 L k/mm3 (150-375) MPV 11.1 fl H fl (7.4-10.4) Immature Gran % (Auto) 0.3 % % (0-0.5) Neut % (Auto) 57.3 % % (45.5-73.1) Lymph % (Auto) 30.7 % % (18.3-44.2) [place] % (Auto) 8.9 % H % (2.6-8.5) Eos % (Auto) 2.3 % % (0-4.4) Baso % (Auto) 0.5 % % (0.2-1.2) Lymph # (Auto) 1.18 K/mm3 K/mm3 (0.9-3.2) [place] # (Auto) 0.3 K/mm3 K/mm3 (0.1-0.6) Eos # (Auto) 0.1 K/mm3 K/mm3 (0-0.3) Baso # (Auto) 0.0 K/mm3 K/mm3 (0.0-0.1) Abs Immat Gran (auto) 0.01 K/mm3 K/mm3 (0.00-0.031) Absolute Neuts (auto) 2.2 K/mm3 K/mm3 (1.3-6.7) Absolute Nucleated RBC 0.0 K/mm3 K/mm3 (0.0-0.012) Nucleated RBC % 0.0 % % (0.0-0.2) PT INR Sodium Potassium Chloride Carbon Dioxide Anion Gap BUN Creatinine Estim Creat Clear Calc Estimated GFR Glucose Calcium Total Bilirubin 2.6 mg/dL H mg/dL (0.2-1.3) Direct Bilirubin 0.4 mg/dL H mg/dL (0-0.3) AST 599 U/L H U/L (17-59) ALT 1323 U/L H U/L (6-50) Alkaline Phosphatase 124 U/L U/L (38-126) Ammonia Total Protein 7.0 g/dL g/dL (6.3-8.2) Albumin 4.2 g/dL g/dL (3.5-5.1) Hepatitis A IgM Ab Negative (Negative) Hep Bs Antigen Negative (Negative) Hep B Core IgM Ab Negative (Negative) Hepatitis C Ab Screen Negative (Negative) 04/29/22 04/29/22 04/29/22 05:23 05:23 05:23 WBC RBC Hgb Hct MCV MCH MCHC RDW Plt Count MPV Immature Gran % (Auto) Neut % (Auto) Lymph % (Auto) [place] % (Auto) Eos % (Auto) Baso % (Auto) Lymph # (Auto) [place] # (Auto) Eos # (Auto) Baso # (Auto) Abs Immat Gran (auto) Absolute Neuts (auto) Absolute Nucleated RBC Nucleated RBC % PT 12.9 Seconds Seconds (11.1-14.7) INR 1.0 Sodium 140 mmol/L mmol/L (137-145) Potassium 3.8 mmol/L mmol/L (3.4-5.0) Chloride 109 mmol/L H mmol/L (98-107) Carbon Dioxide 28 mmol/L mmol/L (22-30) Anion Gap 3 mmol/L L mmol/L (8-16) BUN 8 mg/dL L mg/dL (9-20) Creatinine 1.00 mg/dL mg/dL (0.7-1.3) Estim Creat Clear Calc 103 ml/min
--- NOTE | 2022-04-29 07:19 | WPDHPUPDATE1 ---
History and Physical Update Update Date/Time: 04/29/22 07:19 History and Physical has been reviewed, including an updated exam of the patient. There are NO changes in the patient's condition. Risks, benefits, and alternatives have been discussed and questions answered. Patient agrees to proceed with procedure. MRCP normal and will proceed with cholecystectomy at this point.
[2022-04-29] MEDS: ceFAZolin 2 GM/D5W 50 ML 2 GM/50 ML BAG IVPB (07:26)
[2022-04-29] MEDS: LIDO 2%/EPINEPHRINE 1:100,000 20 ML VIAL INFILTRATE (07:41)
[2022-04-29] MEDS: fentaNYL CITRATE INJ (*CRX) 100 MCG/2 ML VIAL 25 MCG IV PUSH ×8 (08:29→09:20)
[2022-04-29 08:40] LABS: Monoscreen Negative (Negative); Negative Monotest Control Negative (Negative); Positive Monotest Control Positive (Positive)
--- NOTE | 2022-04-29 08:43 | W.PM.PROC2 ---
Procedure Note - Detailed Date of Procedure 04/29/22 Pre-op Diagnosis acute cholecystitis, cholelithiasis Post-op Diagnosis Same Procedure Performed Laparoscopic cholecystectomy Surgeon Rosario Causey MD Anesthesia General Indications 36 y/o M presenting c likely cholecystitis, choledocholithiasis Findings cholecystitis, cholelithiasis Description of Procedure The patient was taken to the operating room placed in the supine position. After adequate induction of general anesthesia, the patient was prepped and draped in normal sterile fashion. A time-out was then performed to verify the patient's identity as well as the procedure being performed. I then made a 5 mm incision in the infraumbilical region. Through this, a Veress needle was placed into the peritoneal cavity and CO2 gas was then insufflated. After adequate pneumoperitoneum was achieved, the Veress needle was removed and a 5 mm optiview trocar was placed through this incision under direct visualization. I then placed the laparoscope through this trocar site and under direct visualization placed a further 12 mm subxiphoid port as well as 2 additional 5 mm ports in the right upper abdomen. The gallbladder was then identified and was noted to be moderately inflamed, distended, and full of gallstones. I was able to place a grasper at the dome of the gallbladder and this was retracted anterior and cephalad up over the liver. A 2nd retractor was then placed at the infundibulum and retracted laterally, this allowed visualization of the triangle of Calot. I then was able to visualize the cystic duct in its entirety from its proximal insertion into the gallbladder, to its distal junction with the common hepatic/common bile duct junction. At this point, I carefully skeletonized the proximal cystic duct with the [place] dissector. I then clipped and transected the proximal cystic duct. Next I visualized the cystic artery. Again the artery was skeletonized, clipped, and transected. I then used the Bovie cautery to take down the peritoneal attachments of the gallbladder off the liver bed. This was somewhat difficult given the amount of inflammation in the posterior space. Once the gallbladder specimen was completely detached, an endo-pouch was placed through the 12 mm port site. I then placed the gallbladder specimen into the Endo pouch and removed the endo-pouch from the 12 mm port site. The specimen will now be sent to pathology for further review. I then copiously irrigated the right upper quadrant. Hemostasis was noted in the liver bed, the clips were noted to be in good position on both the cystic duct stump and the cystic artery stump. No other pathology was noted in the right upper quadrant. I then moved the laparoscope to the subxiphoid port. No iatrogenic injury or other pathology was noted in the lower abdomen. I then closed the 12 mm trocar site under direct visualization using the [place] cone and 0 Vicryl suture. At this point, the abdomen was desufflated and all ports removed. All port sites were then closed with 4.O Monocryl subcuticular sutures. Dermabond was placed on each incision. The patient tolerated the procedure well, was extubated in the operating room postoperative and will be transferred to the recovery room in stable condition Estimated Blood Loss 5 Drains No Packing No Pathology Yes Complications No immediate complications Condition Stable Disposition PACU [facility] Billing Surgery - Charge Forward: Surgery Billing
[2022-04-29] MEDS: KETOROLAC 30 MG/ML VIAL (*BKC) IV PUSH (08:49)
[2022-04-29] MEDS: HYDROmorphone HCL INJ (*CRX) 1 MG/ML SYR IV PUSH (10:39)
--- NOTE | 2022-04-29 11:41 | PM.IMPN ---
Progress Note: A&P Assessment and Plan (1) Cholelithiasis: Code(s): K80.20 - Calculus of gallbladder without cholecystitis without obstruction Status: Acute Assessment and Plan: 04/29- Patient presenting with epigastric pain radiating to shoulders and CT abdomen pelvis showing gallbladder distention and 2cm noncalcified stone. MRCP however showed a normal common bile duct diameter, about 4 mm and no intra ductal stones. ?is possible that he passed a stone. He is now s/p lap verónica on 04/29, and doing well. Surgery is following this patient. Continue to trend LFTs Pain control per surgery. Awaiting return of bowel function Will advance diet per surgery. (2) Transaminitis: Code(s): R74.01 - Elevation of levels of liver transaminase levels Status: Acute Assessment and Plan: 04/29- MRCP showed no intraductal stones, normal CBD. Pt now s/p elective lap verónica on 04/29. Hepatitis panel negative. AST 384 (599) ALT 1133 (1323) ALk Tony 135s (124) Bili: 1.5 (2.6) Plan as above. Subjective Date/time seen: 04/29/22 11:41 Patient is a 36 year old male with no significant past medical history who presented for right upper quadrant pain. He underwent elective laparoscopic cholecystectomy today. During my exam he was sitting up in bed. No apparent distress, endorses some abdominal pain. He denies chest pain, shortness of breath, nausea, and vomiting. He is passing flatus but has not yet passed any stool. He would like to go home as soon as he is able. Review of Systems Review of Systems: All systems reviewed & are unremarkable except as noted in HPI and below Exam Narrative: GENERAL APPEARANCE: Alert and oriented x 3, in no apparent distress. HEENT: PERRL, EOMI. Sclerae anicteric. Moist mucous membranes. NECK: Supple. No JVD or obvious carotid bruits. RESPIRATORY: Respirations are nonlabored. Breath sounds are equal and clear bilaterally. No wheezes, Rhonchi, or rales. CARDIOVASCULAR: Regular rate and rhythm with normal S1-S2. No murmurs, gallops, or rubs. GASTROINTESTINAL: Soft, flat, and benign. Diffuse abdominal tenderness without peritoneal signs. Bowel sounds present. SKIN: Warm, dry, well perfused. Good turgor. No lesions, nodules, or rashes noted. EXTREMITIES: No cyanosis, clubbing, or edema. Radial and pedal pulses intact. NEUROLOGICAL: Alert. Cranial nerves 2-12 are grossly intact. No gross focal deficits to casual conversation. PSYCHIATRIC: Pleasant and cooperative with normal mood and affect. Objective Data Vital Signs Vital Signs: Vital Signs - 24 hr 04/28/22 14:18 04/28/22 14:37 04/28/22 20:00 Temperature 97.9 F Pulse Rate 57 L Respiratory Rate 16 Blood Pressure 140/86 Pulse Oximetry 100 100 Oxygen Delivery Room Air Room Air Oxygen Flow Rate 04/28/22 22:00 04/29/22 06:12 04/29/22 06:13 Temperature 97.7 F 97.6 F 97.6 F Pulse Rate 51 L 44 L 44 L Respiratory Rate 18 18 18 Blood Pressure 140/83 152/88 H 152/88 H Pulse Oximetry 100 100 100 Oxygen Delivery Oxygen Flow Rate 04/29/22 06:25 04/29/22 08:20 04/29/22 08:35 Temperature 97.2 F L 98.8 F Pulse Rate 45 L 62 52 L Respiratory Rate 16 18 16 Blood Pressure 136/86 122/82 129/81 Pulse Oximetry 99 100 100 Oxygen Delivery Room Air Simple Face Mask Simple Face Mask Oxygen Flow Rate 8 8 04/29/22 08:45 04/29/22 09:00 04/29/22 09:15 Temperature Pulse Rate 48 L 51 L 67 Respiratory Rate 16 18 14 Blood Pressure 136/86 138/85 128/72 Pulse Oximetry 100 97 95 Oxygen Delivery Simple Face Mask Room Air Room Air Oxygen Flow Rate 8 04/29/22 09:45 04/29/22 10:00 04/29/22 10:30 Temperature 97.9 F 97.9 F 98.1 F Pulse Rate 61 53 L 61 Respiratory Rate 18 18 16 Blood Pressure 124/77 113/72 113/55 L Pulse Oximetry 95 96 96 Oxygen Delivery Oxygen Flow Rate Intake/Output Intake/Output: Intake & Output 04/26/22 04/27/22 04/28/22 04/29/22 2
[2022-04-29] MEDS: HYDROcodone/acetaminophen (*CRX) 5-325 MG TABLET 1 TAB PO ×2 (16:20→20:21)
[2022-04-29] MEDS: DEXTROSE 5%/0.45% SOD CHL 1,000 ML 100 ML IV CONT ×2 (16:23→17:09)
[2022-04-29] MEDS: TEMAZEPAM (*CRX) 15 MG CAPSULE PO (23:04)
[2022-04-30] MEDS: HYDROcodone/acetaminophen (*CRX) 5-325 MG TABLET 1 TAB PO ×2 (00:35→05:28)
[2022-04-30] MEDS: DEXTROSE 5%/0.45% SOD CHL 1,000 ML 100 ML IV CONT (00:36)
[2022-04-30 05:21] VITALS: BP 126/67; PULSE 68; RESP 16; TEMP 36.4; O2SAT 97
[2022-04-30 05:46] LABS: Basophils Percent Auto 0.2 % (0.2-1.2); Eosinophils Absolute Auto 0.1 K/mm3 (0-0.3); Eosinophils Percent Auto 0.8 % (0-4.4); Hematocrit 39.3 % (42.0-52.0); Hemoglobin 13.1 g/dL (14.0-18.0); Immature Granulocyte Absolute 0.02 K/mm3 (0.00-0.031); Immature Granulocyte Percent A 0.3 % (0-0.5); Lymphocytes Absolute Auto 1.41 K/mm3 (0.9-3.2); Mean Corpuscular HGB Conc 33.3 g/dl (32-36); Mean Corpuscular Hemoglobin 29.8 pg (26-34); Mean Corpuscular Volume 89.5 fl (80-100); Mean Platelet Volume 10.8 fl (7.4-10.4); Monocytes Absolute Auto 0.6 K/mm3 (0.1-0.6); Monocytes Percent Auto 8.9 % (2.6-8.5); Neutrophils Absolute Auto 4.4 K/mm3 (1.3-6.7); Neutrophils Percent Auto 67.8 % (45.5-73.1); Platelet Count Result 167 k/mm3 (150-375); Red Blood Count 4.39 M/mm3 (4.6-6.20); Red Cell Distribution Width 13.1 % (11.5-14.5); White Blood Count 6.4 K/mm3 (4.5-10.0)
[2022-04-30 06:10] LABS: Albumin Level 4.4 g/dL (3.5-5.1); Alkaline Phosphatase 120 U/L (38-126); Anion Gap 7 mmol/L (8-16); Aspartate Amino Transferase 244 U/L (17-59); Bilirubin,Total 1.1 mg/dL (0.2-1.3); Blood Urea Nitrogen 8 mg/dL (9-20); Calcium 7.9 mg/dL (8.4-10.2); Carbon Dioxide 27 mmol/L (22-30); Chloride 106 mmol/L (98-107); Estimated CRCL calculation 103 ml/min; Estimated Glomerular Filt Rate > 60; Glucose 85 mg/dL (65-110); Potassium 3.6 mmol/L (3.4-5.0); Sodium 140 mmol/L (137-145)
[2022-04-30 06:28] LABS: Alanine Aminotransferase 897 U/L (6-50)
--- NOTE | 2022-04-30 09:04 | PM.DS ---
DS: Admitting Diagnosis Discharge Date 04/30/22 1600 Admitting Diagnosis Cholelithiasis DS: Discharge Diagnosis Discharge Diagnosis (1) Cholelithiasis: Code(s): K80.20 - Calculus of gallbladder without cholecystitis without obstruction Status: Acute Assessment and Plan: 04/29- Patient presenting with epigastric pain radiating to shoulders and CT abdomen pelvis showing gallbladder distention and 2cm noncalcified stone. MRCP however showed a normal common bile duct diameter, about 4 mm and no intra ductal stones. ?is possible that he passed a stone. He is now s/p lap verónica on 04/29, and doing well. Surgery is following this patient. Continue to trend LFTs Pain control per surgery. Awaiting return of bowel function Will advance diet per surgery. 04/30- Patient's pain is resolving, he has advanced to low fat diet and tolerated this. Transaminitis is improving daily, with no WBC elevation, VSS. Will Follow up with primary care and surgery team 2 weeks after discharge. (2) Transaminitis: Code(s): R74.01 - Elevation of levels of liver transaminase levels Status: Acute Assessment and Plan: 04/29- MRCP showed no intraductal stones, normal CBD. Pt now s/p elective lap verónica on 04/29. Hepatitis panel negative. AST 384 (599) ALT 1133 (1323) ALk Tony normal today 135 (124) Bili: nromal today 1.5 (2.6) 04/30 Transaminitis continues to improve for this patient. Will advise low fat diet, alcohol avoidance, repeat LFTs in 2 weeks with PCP. DS: Summary Hospital Course Reason for hospitalization: Cholelithiasis Hospital Course: See above for full hospital course Status at Discharge Cognitive/behavioral status at discharge: Progressing to baseline Time Spent with Patient Time attestation: Total time spent providing and/or coordinating discharge services: 35 minutes Exam Narrative: GENERAL APPEARANCE: Alert and oriented x 3, in no apparent distress. HEENT: PERRL, EOMI. Sclerae anicteric. Moist mucous membranes. NECK: Supple. No JVD or obvious carotid bruits. RESPIRATORY: Respirations are nonlabored. Breath sounds are equal and clear bilaterally. No wheezes, Rhonchi, or rales. CARDIOVASCULAR: Regular rate and rhythm with normal S1-S2. No murmurs, gallops, or rubs. GASTROINTESTINAL: Soft, flat, and benign. Diffuse abdominal tenderness without peritoneal signs. Bowel sounds present. SKIN: Warm, dry, well perfused. Good turgor. No lesions, nodules, or rashes noted. EXTREMITIES: No cyanosis, clubbing, or edema. Radial and pedal pulses intact. NEUROLOGICAL: Alert. Cranial nerves 2-12 are grossly intact. No gross focal deficits to casual conversation. PSYCHIATRIC: Pleasant and cooperative with normal mood and affect. DS: Data Data Completed and Pending Pending studies at discharge: Pending at discharge 04/29/22 07:52 Surgical [PTH] Routine Labs on day of discharge: Labs from last 24 hours 04/30/22 04/30/22 04/28/22 05:38 05:38 00:52 WBC 6.4 RBC 4.39 L Hgb 13.1 L Hct 39.3 L MCV 89.5 MCH 29.8 MCHC 33.3 RDW 13.1 Plt Count 167 MPV 10.8 H Immature Gran % (Auto) 0.3 Neut % (Auto) 67.8 Lymph % (Auto) 22.0 [place] % (Auto) 8.9 H Eos % (Auto) 0.8 Baso % (Auto) 0.2 Lymph # (Auto) 1.41 [place] # (Auto) 0.6 Eos # (Auto) 0.1 Baso # (Auto) 0.0 Abs Immat Gran (auto) 0.02 Absolute Neuts (auto) 4.4 Absolute Nucleated RBC 0.0 Nucleated RBC % 0.0 Sodium 140 141 Potassium 3.6 3.7 Chloride 106 107 Carbon Dioxide 27 28 Anion Gap 7 L 6 L BUN 8 L 12 Creatinine 1.00 1.10 Estim Creat Clear Calc 103 94 Estimated GFR > 60 > 60 Glucose 85 107 Calcium 7.9 L 8.9 Total Bilirubin 1.1 1.6 H AST 244 H 1011 H ALT 897 H 1425 H Alkaline Phosphatase 120 128 H Total Protein 7.0 8.0 Albumin 4.4 4.4 Lipase 67 Discharge Plan Discharge Attending
--- NOTE | 2022-04-30 09:15 | P.PNAN_ITS ---
Anes - Prog Note Post-Op Date/Time: 04/30/22 09:15 Cardiovascular status: normal Respiratory status: normal Airway patency: baseline Mental status: baseline Post-Op hydration status: normal Vital Signs: Last Vital Signs Temp 97.5 F L 04/30/22 05:21 Pulse 68 04/30/22 05:21 Resp 16 04/30/22 05:21 BP 126/67 04/30/22 05:21 Pulse Ox 97 04/30/22 05:21 O2 Del Method Room Air 04/29/22 20:00 O2 Flow Rate 8 04/29/22 08:45 Pain Score (VAS): 12/01 I/O: Intake & Output 04/29/22 04/30/22 04/30/22 23:59 07:59 15:59 Intake Total 2540 1550 Balance 2540 1550 Laboratory Tests 04/30/22 05:38 04/30/22 05:38 04/28/22 04/30/22 04/30/22 00:52 05:38 05:38 WBC 6.4 RBC 4.39 L Hgb 13.1 L Hct 39.3 L MCV 89.5 MCH 29.8 MCHC 33.3 RDW 13.1 Plt Count 167 MPV 10.8 H Immature Gran % (Auto) 0.3 Neut % (Auto) 67.8 Lymph % (Auto) 22.0 [place] % (Auto) 8.9 H Eos % (Auto) 0.8 Baso % (Auto) 0.2 Lymph # (Auto) 1.41 [place] # (Auto) 0.6 Eos # (Auto) 0.1 Baso # (Auto) 0.0 Abs Immat Gran (auto) 0.02 Absolute Neuts (auto) 4.4 Absolute Nucleated RBC 0.0 Nucleated RBC % 0.0 Sodium 141 140 Potassium 3.7 3.6 Chloride 107 106 Carbon Dioxide 28 27 Anion Gap 6 L 7 L BUN 12 8 L Creatinine 1.10 1.00 Estim Creat Clear Calc 94 103 Estimated GFR > 60 > 60 Glucose 107 85 Calcium 8.9 7.9 L Total Bilirubin 1.6 H 1.1 AST 1011 H 244 H ALT 1425 H 897 H Alkaline Phosphatase 128 H 120 Total Protein 8.0 7.0 Albumin 4.4 4.4 Lipase 67 Post-procedural complaints: none Patient Feedback: Patient satisfied with anesthetic care.
--- NOTE | 2022-04-30 14:10 | PM.PNGS ---
Progress Note: A&P Assessment and Plan (1) Choledocholithiasis: Code(s): K80.50 - Calculus of bile duct without cholangitis or cholecystitis without obstruction Status: Acute Assessment and Plan: POD#1 and doing well. Okay to discharge from our standpoint. Continue low fat diet. F/u with Dr. Causey in 2 weeks. Discussed d/c instructions. Subjective Subjective Date/Time Seen: 04/30/22 12:10 Post Op day: 1 (laparoscopic cholecystectomy) Patient reports: tolerating a regular diet, voiding w/o difficulty, flatus, no bowel movement and afebrile Interval history: Patient seen and examined. Pain controlled. Tolerating a diet. No complaints. Review of Systems Review of Systems: All systems reviewed & are unremarkable except as noted in HPI and below Exam Const: General: comfortable and no acute distress Orientation/consciousness: patient oriented x3 GI: Inspection: non-distended and incision (dry and glue intact) GI Palp: Yes Soft to palpation and Yes Tenderness to palpation present (GI) (incisional) Auscultation: normal bowel sounds Extrem: General: no calf tenderness and no edema Psych: Insight: Good insight present (Psych) Judgement: Good judgement present (Psych) Objective Data Vital Signs Vital Signs: Vital Signs - 24 hr 04/29/22 14:20 04/29/22 20:00 04/29/22 20:59 Temperature 98.2 F 98 F Pulse Rate 50 L 51 L Respiratory Rate 16 16 Blood Pressure 132/73 147/82 H Pulse Oximetry 99 99 Oxygen Delivery Room Air 04/30/22 05:21 04/30/22 08:45 Temperature 97.5 F L Pulse Rate 68 Respiratory Rate 16 Blood Pressure 126/67 Pulse Oximetry 97 Oxygen Delivery Room Air Intake/Output Intake/Output: Intake & Output 04/27/22 04/28/22 04/29/22 04/30/22 23:59 23:59 23:59 23:59 Intake Total 2780 4880 2030 Output Total 1100 Balance 2780 3780 2030 Meds/Results Medications: Active Medications Generic Name Dose Route Start Last Admin Trade Name Freq PRN Reason Stop Dose Admin Hydrocodone Bitart/Acetaminophen 1 tab 04/29/22 09:24 04/30/22 05:28 Hydrocodone/Acetaminophen (*Crx) 5-325 Mg Tablet PO 1 tab Q4H PRN Administration Pain Rated 4-6 Hydromorphone HCl 1 mg 04/28/22 12:48 04/29/22 10:39 Hydromorphone Hcl Inj (*Crx) 1 Mg/Ml Syr IV PUSH 1 mg Q3H PRN Administration Pain Rated 7-10 Dextrose/Sodium Chloride 1,000 mls @ 100 mls/hr 04/28/22 02:15 04/30/22 00:36 Dextrose 5% Sodium Chloride 0.45% IV CONT 100 mls/hr .Q10H GREG Administration Temazepam 15 mg 04/29/22 22:55 04/29/22 23:04 Temazepam (*Crx) 15 Mg Capsule PO 15 mg HS PRN Administration Insomnia Radiology Results: ITS Impressions Abdomen/Pelvis CT 04/28/22 07:18 IMPRESSION: 1. Cholelithiasis. No specific evidence of acute cholecystitis. 2. Small sliding hiatal hernia. 3. Osteonecrosis of the femoral heads. MRCP 04/28/22 10:41 IMPRESSION: 1. No choledocholithiasis. 2. Cholelithiasis. Gallbladder wall thickening is likely secondary to gallbladder contraction and interstitial edema. ADDENDUM: 04/30/22 1037 Correction to technique: MRI of the abdomen was performed without and with 19 mL MultiHance intravenous contrast. Labs Labs: Laboratory Results - last 24 hr 04/28/22 04/30/22 04/30/22 00:52 05:38 05:38 WBC 6.4 RBC 4.39 L Hgb 13.1 L Hct 39.3 L MCV 89.5 MCH 29.8 MCHC 33.3 RDW 13.1 Plt Count 167 MPV 10.8 H Immature Gran % (Auto) 0.3 Neut % (Auto) 67.8 Lymph % (Auto) 22.0 Lane % (Auto) 8.9 H Eos % (Auto) 0.8 Baso % (Auto) 0.2 Lymph # (Auto) 1.41 Lane # (Auto) 0.6 Eos # (Auto) 0.1 Baso # (Auto) 0.0 Abs Immat Gran (auto) 0.02 Absolute Neuts (auto) 4.4 Absolute Nucleated RBC 0.0 Nucleated RBC % 0.0 Sodium 141 140 Potassium 3.7 3.6 Chloride 107 106 Carbon Dioxide 28 27 Anion Gap 6 L 7 L BUN 12 8 L Creatinine 1.10
== END 2022-04-30 14:50 | disposition home or self-care (01) | DRG 419 ==
LOC: ANHED 01:04 → ANH3MED 02:31
PROVIDERS: Internal Medicine Gastroenterology; Nurse Practitioner Family; Physician Assistant; Surgery; Admitting Provider Internal Medicine; Emergency Provider Emergency Medicine; PCP Family Medicine; Visit Provider Student in an Organized Health Care Education/Training Program
PROC: 0FT44ZZ Resection of Gallbladder, Percutaneous Endoscopic Approach (ICD-10-PCS; CPT 47562; principal; 2022-04-29 07:30)
DX: K80.10 Calculus of gallbladder with chronic cholecystitis without obstruction (principal); R74.01 Elevation of levels of liver transaminase levels; K59.09 Other constipation; E66.9 Obesity, unspecified; Z68.32 Body mass index [BMI] 32.0-32.9, adult; Z87.891 Personal history of nicotine dependence
CPT/HCPCS: 36415; 74176; 74183; 76376; 80053; 80074; 80076; 82140; 83690; 85025; 85610; 86308; 88304; 96374; 96375; 99285; A9270; A9577; J0690; J1100; J1170; J1885; J2250; J2270; J2405; J2704; J3010; J7030; J7120

== ENCOUNTER 2023-01-01 10:35 | Emergency (ER) | payer OTHER, SELFPAY ==
--- NOTE | ~2023-01-01 | XR_ITS ---
EXAMINATION: XR chest 2V DATE: 01/01/2023 12:01 INDICATION: Left shoulder pain TECHNIQUE: PA and lateral views of the chest are obtained. COMPARISON: None available FINDINGS: The lungs are free of acute opacities. No pleural effusion or pneumothorax. The cardiomedia stinal silhouette is normal. There is mild thoracic spondylosis. Surgical clips in the right upper qu adrant are likely from prior cholecystectomy. IMPRESSION: 1. No acute cardiopulmonary abnormality. Reviewed, dictated and finalized at location B. [facility]
[2023-01-01 11:28] VITALS: BP 137/84; PULSE 72; RESP 14; TEMP 36.4; O2SAT 100
--- NOTE | 2023-01-01 11:30 | ECG_ITS ---
Measurements Intervals [place] Rate: 70 P: 45 ME: 127 QRS: -9 QRSD: 103 T: 36 QT: 356 QTc: 385 Interpretive Statements SINUS RHYTHM NORMAL ELECTROCARDIOGRAM COMPARED TO ECG 08/25/2021 06:22:58 HEART RATE IS INCREASED Electronically Signed On 01-01-2023 13:16:21 CUSTOMIZER by Werner Cavazos M.D.
[2023-01-01 12:04] LABS: Basophils Percent Auto 0.7 % (0.2-1.2); Eosinophils Absolute Auto 0.1 K/mm3 (0-0.3); Eosinophils Percent Auto 1.1 % (0-4.4); Hematocrit 44.7 % (42.0-52.0); Hemoglobin 14.7 g/dL (14.0-18.0); Immature Granulocyte Absolute 0.01 K/mm3 (0.00-0.031); Immature Granulocyte Percent A 0.2 % (0-0.5); Lymphocytes Absolute Auto 1.19 K/mm3 (0.9-3.2); Lymphocytes Percent Auto 26.6 % (18.3-44.2); Mean Corpuscular HGB Conc 32.9 g/dl (32-36); Mean Corpuscular Hemoglobin 29.3 pg (26-34); Mean Corpuscular Volume 89.2 fl (80-100); Mean Platelet Volume 10.8 fl (7.4-10.4); Monocytes Absolute Auto 0.4 K/mm3 (0.1-0.6); Monocytes Percent Auto 8.5 % (2.6-8.5); Neutrophils Absolute Auto 2.8 K/mm3 (1.3-6.7); Neutrophils Percent Auto 62.9 % (45.5-73.1); Platelet Count Result 191 k/mm3 (150-375); Red Blood Count 5.01 M/mm3 (4.6-6.20); Red Cell Distribution Width 13.2 % (11.5-14.5); White Blood Count 4.5 K/mm3 (4.5-10.0)
[2023-01-01 12:07] LABS: Alanine Aminotransferase 82 U/L (6-50); Albumin Level 4.7 g/dL (3.5-5.1); Alkaline Phosphatase 50 U/L (38-126); Anion Gap 8 mmol/L (8-16); Aspartate Amino Transferase 66 U/L (17-59); Bilirubin,Total 0.6 mg/dL (0.2-1.3); Blood Urea Nitrogen 9 mg/dL (9-20); Calcium 8.7 mg/dL (8.4-10.2); Carbon Dioxide 27 mmol/L (22-30); Chloride 106 mmol/L (98-107); Estimated CRCL calculation 121 ml/min; Estimated Glomerular Filt Rate > 60; Glucose 82 mg/dL (65-110); Lipase 38 U/L (23-300); Potassium 4.4 mmol/L (3.4-5.0); Sodium 141 mmol/L (137-145)
[2023-01-01 12:18] LABS: Troponin I < 0.012 ng/mL (0.000-0.034)
[2023-01-01 12:56] LABS: Appearance Urine Clear (Clear); Bilirubin Urine Negative (Negative); Blood Urine Negative (Negative); Color Urine Yellow (Yellow); Glucose Urine UA Negative (Negative); Ketones Urine Negative (Negative); Leukocyte Esterase Ur Negative LEU/UL (Negative); Nitrate Urine Negative (Negative); Protein Urine Negative (Negative); Specific Grav Ur <= 1.005 (1.001-1.035); Urobilinogen Urine 0.2 mg/dL (<2.0)
[2023-01-01 12:57] LABS: Add Urine Microscopic? NO
[2023-01-01 13:36] LABS: INR 0.9
[2023-01-01 13:37] LABS: Partial Thromboplastin Time 28.8 SECONDS (22.3-36.8)
--- NOTE | 2023-01-01 13:42 | ED.GENADULT ---
HPI - General Adult General Chief complaint: Unspecified Stated complaint: left flank pain Time Seen by Provider: 01/01/23 12:11 Source: patient Mode of arrival: ambulatory Limitations: no limitations History of Present Illness HPI narrative: 37-year-old otherwise healthy here with the complaints of left flank pain radiating into upper part of his chest for the past 2 days. He denies any cough or fever. He states that every time she takes a deep breath he has severe pain in the back no history of trauma or lifting injuries. Related Data Allergies Allergy/AdvReac Type Severity Reaction Status Date / Time codeine AdvReac Intermediate SEVERE Verified 05/13/22 10:03 HICCUPS Review of Systems Review of Systems: All systems reviewed & are unremarkable except as noted in HPI and below Constitutional: Constitutional: Reports no additional constitutional complaints Eyes: Eyes: Reports no additional eye complaints ENT: Reports system reviewed and no additional complaints, except as documented Cardiovascular: Cardiovascular: Reports as per HPI Respiratory: Respiratory: Reports no additional respiratory complaints Gastrointestinal: Gastrointestinal: Reports no additional gastrointestinal complaints Integumentary/Breasts: Skin/Breast: Reports system reviewed and no additional complaints, except as docu Neurologic: Reports system reviewed and no additional complaints, except as documented PMFSH Past Medical History Medical History Cholelithiasis Obesity Smoker Surgical History Surgical History H/O nasal septoplasty Hx laparoscopic cholecystectomy 04/29/22 Family History Family History Mother Lung cancer Sibling Vocal cord cancer Sibling Pancreatitis Social History Social History Smoking packs per day: 1 Smoking cigarettes per day: 20.0 Years smoked: 15 Smoking pack-years: 15.00 Smoking status: Former smoker Tobacco type: e-cigarettes/vaping Additional smoking assessment comments: patient vapes one half pod per day Alcohol intake: current Drinks per week: 12 Alcohol use details: BEERS Substance use: never Substance use type: does not use Living arrangements: with family Gender identity (if verbalized by the patient): Male Spiritual care concerns: No Exam Narrative: GENERAL: Well-appearing, well-nourished, and in no acute distress. HEAD: Normocephalic, atraumatic. EYES: PERRLA and EOMI.. NECK: Supple. CHEST: Clear to auscultation. No respiratory distress. HEART: Regular rate and rhythm. No murmur heard. Normal peripheral pulses. ABDOMEN: Soft, nontender, nondistended, normal active bowel sounds.mild tenderness in the left flank , no rash EXTREMITIES: Normal range of motion. No edema. SKIN: Warm, dry, no rash. NEURO: No focal deficits. Alert and oriented x3. PSYCH: Normal mood and affect. Course Vital Signs Vital signs: Vital Signs Temperature 36.4 C L 01/01/23 11:28 Pulse Rate 72 01/01/23 11:28 Respiratory Rate 14 01/01/23 11:28 Blood Pressure 137/84 01/01/23 11:28 Pulse Oximetry 100 01/01/23 11:28 Oxygen Delivery Room Air 01/01/23 11:28 Temperature 36.4 C L 01/01/23 11:28 Pulse Rate 72 01/01/23 11:28 Respiratory Rate 14 01/01/23 11:28 Blood Pressure 137/84 01/01/23 11:28 Pulse Oximetry 100 01/01/23 11:28 Oxygen Delivery Room Air 01/01/23 11:28 Medical Decision Making [facility] Narrative Medical decision making narrative: 37-year-old otherwise healthy here with a left flank pain radiating into the lower part of his chest for last 2 days this physical exam is unremarkable chest x-ray EKG and lab work normal cause of his pain most likely musculoskeletal at this time. Differential Diagnosis Differential Diagnosis: Pneumonia, herpes zoster, kidney stones, heike
== END 2023-01-01 13:56 | disposition home or self-care (01) ==
PROVIDERS: Emergency Medicine; Emergency Provider Family Medicine; PCP Family Medicine
DX: R10.9 Unspecified abdominal pain (principal); E66.9 Obesity, unspecified; Z68.32 Body mass index [BMI] 32.0-32.9, adult; F17.290 Nicotine dependence, other tobacco product, uncomplicated
CPT/HCPCS: 36415; 71046; 80053; 81003; 83690; 84484; 85025; 85380; 85610; 85730; 93005; 99284